=== PATIENT | male | born 1980 | race Caucasian/White ===

== ENCOUNTER 2023-03-18 08:40 | Outpatient (CLI) | payer OTHER | END 2023-03-18 08:41 | disposition home or self-care (01) | LOC: SCSCT 08:40 | PROVIDERS: ATTEND Nurse Practitioner Family | DX: S09.90XD Unspecified injury of head, subsequent encounter (principal); F07.81 Postconcussional syndrome; R51.9 Headache, unspecified | CPT/HCPCS: 70450 ==